=== PATIENT | female | born 1975 | race Caucasian/White ===

== ENCOUNTER 2018-11-16 11:55 | Emergency (ER) | payer MEDICAID, SELFPAY ==
[2018-11-16 12:45] VITALS: BP 128/69; PULSE 90; RESP 18; TEMP 36.9; O2SAT 99
--- NOTE | 2018-11-16 13:17 | DI.RAD_ITS ---
SYMPTOM/DIAGNOSIS: SHOULDER PAIN RIGHT SHOULDER: There is spurring at the tip of the acromion. There is a calcification seen adjacent to the humeral head which could indicate calcific tendinitis. There is no significant glenohumeral degenerative changes. IMPRESSION: Calcific tendinitis.
[2018-11-16] MEDS: Ibuprofen 600 MG TAB PO (13:22)
[2018-11-16] MEDS: Acetaminophen 325 MG TAB 650 MG PO (13:22)
--- NOTE | 2018-11-16 14:19 | W.ED.GENAD ---
Discharge Plan Disposition Patient Disposition: HOME Discharge Details Chief Complaint: Orthopedic Primary Care Provider: Unknown,Unknown ED Provider: Fran Cornelius Home Meds and New Rx's Prescriptions: No Action paroxetine HCl [Paxil] 20 mg Tablet 20 mg PO DAILY RF: 0 metoprolol tartrate 25 mg Tablet 25 mg PO BID RF: 0 ibuprofen [Ibuprofen IB] 200 mg Tablet 400 mg PO PRN PRNRF: 0 Discharge Data Discharge Date/Time-TO BE ENTERED AT DEPARTURE: 11/16/18 14:29 Medical Decision Making Severe right shoulder pain times 1 week. No initial trauma but sleeps with head and overhead. Woke up with right shoulder pain. Patient then 4 days ago slipped and fell trying to catch herself which may have aggravated made pain worse. Patient has used some ibuprofen alternating with Tylenol at minimal doses and has had minimal relief. Patient has significant reduction of range of motion, overhead extension, and pain to anterior shoulder. Concern for shoulder sprain versus bursitis but plan to do radiological imaging shoulder to rule out any acute findings Review of radiological imaging shows no acute findings. Patient was discharged with recommendation to continue to use [id number] medication, rest ice shoulder, and follow-up with orthopedist as needed. After discussion of diagnosis and plan of care patient has no further needs, questions, or concerns and states clear understanding to return to the emergency department for any worsening symptoms. HPI General Mode of arrival: ambulatory. Date/Time Provider Initiated Documentation: 11/16/18 12:24. Limitations to Documentation: no limitations. Information obtained by: patient and RN notes reviewed. History of Present Illness described as moderate, with intensity rated at 6. Quality is described as aching and sharp, and is localized to the right and upper extremity. Patient started experiencing this week(s) (1) and it has been constant. Rest improves symptom(s), Movement worsens symptoms . Patient notes no other symptoms.. Patient did receive the following treatments prior to arrival, none Related Data Home Medications Medication Instructions Recorded Confirmed ibuprofen [Ibuprofen IB] 400 mg PO PRN PRN 11/16/18 11/16/18 metoprolol tartrate 25 mg PO BID 11/16/18 11/16/18 paroxetine HCl [Paxil] 20 mg PO DAILY 11/16/18 11/16/18 Allergies Allergy/AdvReac Type Severity Reaction Status Date / Time cephalexin [From [facility]] Allergy Unverified 11/16/18 12:52 codeine Allergy Unverified 11/16/18 12:53 General Stated Complaint: Orthopedic DARREN: 4 Review of Systems Cardiovascular Denies chest pain and Denies dyspnea Respiratory Denies cough and Denies dyspnea Musculoskeletal Reports as per HPI, Denies numbness and Reports tingling Integumentary/Breasts Denies rash, Denies sores and Denies wounds Neurologic Denies numbness and Reports tingling [facility] Social History Smoking and Tabacco status: Current every day Exam Const General: cooperative and no acute distress Orientation: alert, awake and oriented x3 Resp Effort & Inspection: normal respiratory effort and able to speak in complete sentences Cardio Rate: regular rate Rhythm: regular rhythm Extrem Right upper extremity: normal capillary refill, shoulder/upper arm Details: tenderness Location: over the subacromial bursa and over the deltoid bursa, axillary nerve sensory function normal and abnormal ROM Details: pain with active ROM; no deformity, elbow/forearm Details: normal to inspection and abnormal ROM; no tenderness, wrist Details: normal to inspection and normal ROM; no tenderness and hand Details: normal to inspection, normal capillary refill, neuromotor exam normal, neurosensory exam normal, tendon exam normal, vascular exam Details: radial pulse present and normal ROM of fingers Course Vital Signs Temperature 36.9 C 11/16/18 12:45 Pulse 90 11/16/18 12:45 Respiratory Rate 18 11/16/18 12:45 Blood Pressure 128/69 11/16/18 12:45 Pulse Oximetry 99 11/16/18 12:45 Temperature 36.9 C 11/16/18 12:45 Temperature Source Temporal Artery Scan 11/16/18 12:45 Pulse 90 11/16/18 12:45 Respiratory Rate 18 11/16/18 12:45 Respiratory Effort 11/16/18 12:56 Blood Pressure 128/69 11/16/18 12:45 Blood Pressure Position Sitting 11/16/18 12:45 Pulse Oximetry 99 11/16/18 12:45 Oxygen Delivery Method Room Air 11/16/18 12:45 Oxygen Flow Rate 0 11/16/18 12:45 Pain Level 8 11/16/18 13:10
--- NOTE | 2018-11-16 14:22 | ED.GENADUL_ITS ---
Discharge Plan Disposition Patient Disposition: HOME Discharge Details Chief Complaint: Orthopedic Primary Care Provider: Unknown,Unknown ED Provider: Fran Cornelius Home Meds and New Rx's Prescriptions: No Action paroxetine HCl [Paxil] 20 mg Tablet 20 mg PO DAILY RF: 0 metoprolol tartrate 25 mg Tablet 25 mg PO BID RF: 0 ibuprofen [Ibuprofen IB] 200 mg Tablet 400 mg PO PRN PRNRF: 0 Discharge Data Discharge Date/Time-TO BE ENTERED AT DEPARTURE: 11/16/18 14:29 Medical Decision Making Severe right shoulder pain times 1 week. No initial trauma but sleeps with head and overhead. Woke up with right shoulder pain. Patient then 4 days ago slipped and fell trying to catch herself which may have aggravated made pain worse. Patient has used some ibuprofen alternating with Tylenol at minimal doses and has had minimal relief. Patient has significant reduction of range of motion, overhead extension, and pain to anterior shoulder. Concern for shoulder sprain versus bursitis but plan to do radiological imaging shoulder to rule out any acute findings Review of radiological imaging shows no acute findings. Patient was discharged with recommendation to continue to use [id number] medication, rest ice shoulder, and follow-up with orthopedist as needed. After discussion of di agnosis and plan of care patient has no further needs, questions, or concerns and states clear understanding to return to the emergency department for any worsening symptoms. HPI General Mode of arrival: ambulatory . Date/Time Provider Initiated Documentation: 11/16/18 12:24 . Limitations to Documentation: no limitations . Information obtained by: patient and RN notes reviewed . History of Present Illness described as moderate, with intensity rated at 6. Quality is described as aching and sharp, and is localized to the right and upper extremity. Patient started experiencing this week(s) (1) and it has been constant. Rest improves symptom(s), Movement worsens symptoms . Patient notes no other symptoms.. Patient did receive the following treatments prior to arrival, none Related Data Home Medications Medication Instructions Recorded Confirmed ibuprofen [Ibuprofen IB] 400 mg PO PRN PRN 11/16/18 11/16/18 metoprolol tartrate 25 mg PO BID 11/16/18 11/16/18 paroxetine HCl [Paxil] 20 mg PO DAILY 11/16/18 11/16/18 Allergies Allergy/AdvReac Type Severity Reaction Status Date / Time cephalexin [From [facility]] Allergy Unverified 11/16/18 12:52 codeine Allergy Unverified 11/16/18 12:53 General Stated Complaint: Orthopedic DARREN: 4 Review of Systems Cardiovascular Denies chest pain and Denies dyspnea Respiratory Denies cough and Denies dyspnea Musculoskeletal Reports as per HPI, Denies numbness and Reports tingling Integumentary/Breasts Denies rash, Denies sores and Denies wounds Neurologic Denies numbness and Reports tingling [facility] Social History Smoking and Tabacco status: Current every day Exam Const General: cooperative and no acute distress Orientation: alert, awake and oriented x3 Resp Effort & Inspection: normal respiratory effort and able to speak in complete sentences Cardio Rate: regular rate Rhythm: regular rhythm Extrem Right upper extremity: normal capillary refill, shoulder/upper arm Details: tenderness Location: over the subacromial bursa and over the deltoid bursa, axillary nerve sensory function normal and abnormal ROM Details: pain with active ROM; no deformity, elbow/forearm Details: normal to inspection and abnormal ROM; no tenderness, wrist Details: normal to inspection and normal ROM; no tenderness and hand Details: normal to inspection, normal capillary refill, neuromotor exam normal, neurosensory exam normal, tendon exam normal, vascular exam Details: radial pulse present and normal ROM of fingers Course Vital Signs Temperature 36.9 C 11/16/18 12:45 Pulse 90 11/16/18 12:45 Respiratory Rate 18 11/16/18 12:45 Blood Pressure 128/69 11/16/18 12:45 Pulse Oximetry 99 11/16/18 12:45 Temperature 36.9 C 11/16/18 12:45 Temperature Source Temporal Artery Scan 11/16/18 12:45 Pulse 90 11/16/18 12:45 Respiratory Rate 18 11/16/18 12:45 Respiratory Effort 11/16/18 12:56 Blood Pressure 128/69 11/16/18 12:45 Blood Pressure Position Sitting 11/16/18 12:45 Pulse Oximetry 99 11/16/18 12:45 Oxygen Delivery Method Room Air 11/16/18 12:45 Oxygen Flow Rate 0 11/16/18 12:45 Pain Level 8 11/16/18 13:10
== END 2018-11-16 14:29 | disposition home or self-care (01) ==
PROVIDERS: Emergency Provider Nurse Practitioner Family
DX: M25.511 Pain in right shoulder (principal)
CPT/HCPCS: 99283; 73030; 99282

== ENCOUNTER 2019-01-10 17:13 | Emergency (ER) | payer MEDICAID, SELFPAY ==
[2019-01-10] VITALS (16 sets, daily range): BP systolic 122–155; BP diastolic 75–101; PULSE 81–129; RESP 9–31; TEMP 36.8–37; O2SAT 94–99
[2019-01-10] MEDS: Normal Saline Flush 10 ML SYR IVP (17:45)
[2019-01-10] MEDS: Normal Saline 1,000 ML 1000 ML IV ×3 (17:45→20:17)
--- NOTE | 2019-01-10 17:56 | DI.RAD_ITS ---
SYMPTOM/DIAGNOSIS: TACHYCARDIA, PALPITATIONS, HYPERTENSION PA AND LATERAL CHEST: The heart is normal in size. The lungs are clear. The mediastinal structures and pleura appear intact. CONCLUSION: Normal chest.
--- NOTE | 2019-01-10 17:59 | W.ED.GENAD ---
Discharge Plan Disposition Patient Disposition: HOME Condition: Improving Discharge Details Chief Complaint: GenMedical Clinical Impression: UTI (urinary tract infection), Hypokalemia, Hypertension, Dehydration Primary Care Provider: Unknown,Unknown ED Provider: Dalia Pastrana Home Meds and New Rx's Prescriptions: New ciprofloxacin HCl 250 mg tablet 250 mg PO BID 3 Days Qty: 6 RF: 0 Continued paroxetine HCl [Paxil] 20 mg Tablet 20 mg PO DAILY RF: 0 metoprolol tartrate 25 mg Tablet 25 mg PO BID RF: 0 ibuprofen [Ibuprofen IB] 200 mg Tablet 400 mg PO PRN PRNRF: 0 Discharge Instructions Instructions: Dehydration (ED), Urinary Tract Infection in Women (ED), Hypokalemia (ED), Hypertension (ED) Additional Instructions: Take the antibiotics until finished. Drink plenty of fluids and get plenty of rest. Try to supplement potassium in your diet with bananas, spinach, tomato juice, etc. Call your primary care doctor tomorrow to schedule a follow-up appointment for reevaluation and to discuss continued treatment of your blood pressure. Return immediately to the emergency department with any worsening or new concerning symptoms. Discharge Data Discharge Physician: Dalia aPstrana Medical Decision Making 43-year-old female with a history of hypertension, borderline diabetes who presents with hypertension at home today, and feelings of anxiety with intermittent shaking, palpitations and dizziness for the past week. BP at home today 170/120. She denies headache, chest pain, shortness of breath, vomiting, abdominal pain or urinary symptoms. BP 155/101 on arrival. Heart rate 120s. EKG noted a rate of 116 and sinus tachycardia but no acute ST findings. Normal ENT exam. Patient appears mildly dehydrated. Lungs clear to auscultation. Abdomen soft nontender. No lower extremity edema. No focal deficits. Discussed with patient that her symptoms could possibly due to dehydration, or anxiety or a combination of both. Discussed that hypertension can be due to diet, pain, or can be benign essential hypertension that may require adjusting her blood pressure medications. As she has no headache, or focal deficits, I do not see an indication for CT head. Will place an IV, bolus IV fluids, labs including TSH and d-dimer, urinalysis, and chest x-ray. Will also give a dose of Ativan and reassess. 1900 --labs and imaging reviewed. White blood cell count 13. Potassium 2.9. Magnesium 1.7. Troponin negative. D-dimer negative. TSH normal. Urinalysis notes UTI.. Will give a dose of p.o. and IV potassium. Patient states she feels much better. Her heart rate is 80s. Her blood pressure is 135/78. Will give a dose of antibiotics for the UTI and send home with a prescription. Discussed with patient that she should call her primary care doctor tomorrow to schedule a follow-up appointment for reevaluation and to discuss continued management of her blood pressure. Also instructed to discuss with him any concerns for anxiety and whether she could benefit from antianxiety medication. Discussed with patient that her symptoms of palpitations and tachycardia could certainly be due to dehydration and her infection with UTI. She is instructed to drink plenty of fluids, get plenty of rest, finish antibiotics completely and to return immediately to the emergency department any worsening or new concerning symptoms. Medical Records Medical records reviewed: Yes I reviewed the patient's medical records. Imaging Data Radiologic Study: Radiologist's impression: XR Chest, 2 Views EXAM DATE/TIME: 01/10/2019 5:58 PM FINDINGS: Lungs: No consolidation. Pleural space: No pleural effusion. No pneumothorax. Heart/Mediastinum: No cardiomegaly. Bones/joints: No acute fracture. IMPRESSION: No acute cardiopulmonary pathology. Lab Data Lab results reviewed: Yes I reviewed the patient's lab results. 01/10/19 18:17 Urine - Reflex from Ua Urine Culture - Pending Laboratory Tests Range/Units 01/10/19 01/10/19 01/10/19 17:45 17:45 17:45 WBC (4.4-10.8) k/cumm 13.43 H RBC (4.00-5.20) m/cumm 4.67 Hgb (12.0-15.5) g/dL 14.2 Hct (36.0-46.0) % 43.2 MCV (80-95) fL 92.5 MCH (27.0-33.0) pg 30.4 MCHC (32.0-36.0) g/dL 32.9 RDW (11.7-14.6) % 12.7 Plt Count (130-400) x1000/uL 324 MPV (8.0-11.0) fL 11.2 H Immature Gran % 0.1 Neutrophils % 71.2 Lymphocytes % 20.3 Monocytes % 7.7 Eosinophils % 0.5 Basophils % 0.2 Absolute Neutrophils (1.2-6.7) k/cumm 9.56 H Absolute Lymphocytes (1.2-3.4) k/cumm 2.73 Absolute Monocytes (0.11-0.7) k/cumm 1.03 H Absolute Eosinophils (0.0-0.7) k/cumm 0.07 Absolute Basophils (0.0-0.2) k/cumm 0.03 D-Dimer (<500) ng/mlFEU 351 Sodium (136-145) mmol/L 141 Potassium (3.5-5.1) mmol/L 2.9 L* Chloride (98-107) mmol/L 104 Carbon Dioxide (21.0-32.0) mmol/L 24.3 Anion Gap (3-11) mmol/L 12.7 H BUN (7-18) mg/dL 11 Creatinine (0.55-1.02) mg/dL 0.78 Estimated GFR/1.73 m2 (mL/min/1.73m2) >= 60.00 Glucose (70-100) mg/dL 143 H Calcium (8.5-10.1) mg/dL 8.8 Magnesium (1.8-2.4) mg/dL 1.7 L Total Bilirubin (0.2-1.0) mg/dL 0.5 AST (15-37) U/L 12 L ALT (12-78) U/L 21 Alkaline Phosphatase (46-116) U/L 56 Troponin I (0.00-0.06) ng/mL < 0.02 Total Protein (6.4-8.2) g/dL 7.7 Albumin (3.4-5.0) g/dL 3.7 TSH (0.358-3.74) uIU/mL 1.60 Urine Color (Yellow) Urine Clarity Urine pH (5-8) Ur Specific [place] (1.005-1.025) Urine Protein (Negative) mg/dL Urine Ketones (Negative) mg/dL Urine Blood (Negative) Urine Nitrite (Negative) Urine Bilirubin (Negative) Urine Urobilinogen (Up TO 0.2) EU/dL Ur Leukocyte Esterase (Negative) Urine RBC (0-2) Urine WBC (0-5) HPF Ur Epithelial Cells (Negative) HPF Urine Crystals (Negative) HPF Urine Bacteria (Negative) HPF Urine Casts (Negative) LPF Urine Mucus (Negative) Ur Culture Indicated? Urine Glucose (Negative) mg/dL Range/Units 01/10/19 18:17 WBC (4.4-10.8) k/cumm RBC (4.00-5.20) m/cumm Hgb (12.0-15.5) g/dL Hct (36.0-46.0) % MCV (80-95) fL MCH (27.0-33.0) pg MCHC (32.0-36.0) g/dL RDW (11.7-14.6) % Plt Count (130-400) x1000/uL MPV (8.0-11.0) fL Immature Gran % Neutrophils % Lymphocytes % Monocytes % Eosinophils % Basophils % Absolute Neutrophils (1.2-6.7) k/cumm Absolute Lymphocytes (1.2-3.4) k/cumm Absolute Monocytes (0.11-0.7) k/cumm Absolute Eosinophils (0.0-0.7) k/cumm Absolute Basophils (0.0-0.2) k/cumm D-Dimer (<500) ng/mlFEU Sodium (136-145) mmol/L Potassium (3.5-5.1) mmol/L Chloride (98-107) mmol/L Carbon Dioxide (21.0-32.0) mmol/L Anion Gap (3-11) mmol/L BUN (7-18) mg/dL Creatinine (0.55-1.02) mg/dL Estimated GFR/1.73 m2 (mL/min/1.73m2) Glucose (70-100) mg/dL Calcium (8.5-10.1) mg/dL Magnesium (1.8-2.4) mg/dL Total Bilirubin (0.2-1.0) mg/dL AST (15-37) U/L ALT (12-78) U/L Alkaline Phosphatase (46-116) U/L Troponin I (0.00-0.06) ng/mL Total Protein (6.4-8.2) g/dL Albumin (3.4-5.0) g/dL TSH (0.358-3.74) uIU/mL Urine Color (Yellow) Yellow Urine Clarity Sl cloudy Urine pH (5-8) 5.5 Ur Specific [place] (1.005-1.025) 1.025 Urine Protein (Negative) mg/dL Trace H Urine Ketones (Negative) mg/dL 80 H Urine Blood (Negative) Small H Urine Nitrite (Negative) Positive H Urine Bilirubin (Negative) Negative Urine Urobilinogen (Up TO 0.2) EU/dL 0.2 Ur Leukocyte Esterase (Negative) Moderate H Urine RBC (0-2) 5-10 H Urine WBC (0-5) HPF >50 Ur Epithelial Cells (Negative) HPF Negative Urine Crystals (Negative) HPF Negative Urine Bacteria (Negative) HPF Many Urine Casts (Negative) LPF Negative Urine Mucus (Negative) Negative Ur Culture Indicated? Yes Urine Glucose (Negative) mg/dL Negative ECG Data Attestation: I personally reviewed and interpreted this ECG (s) as follows: Interpretation: Rate of 116, sinus tachycardia, no acute ST elevation or depression. QTc 464. QRS 94. HPI General Mode of arrival: ambulatory. Date/Time Provider Initiated Documentation: 01/10/19 17:20. Limitations to Documentation: no limitations. Information obtained by: patient. HPI Narrative: Patient is a 43-year-old female with a history of hypertension and borderline diabetes who presents with concern for high blood pressure and palpitations for the past week. She states her blood pressure is usually 120s over 70s and today at home it was 170/120. She states she is felt like she was having an anxiety attack all week with intermittent palpitations, and feeling shaky and occasional dizziness. She states she has been drinking plenty of fluids but has been eating less for the past week due to the symptoms. She states she does not have a history of anxiety but she thinks this is what her symptoms were from. She states her recently left for a trip to [place] and she thought her symptoms were due to separation anxiety. She admits to intermittent diarrhea in which she has had 1 loose stool daily for the past few days. She denies fever, chest pain, shortness of breath, headache, vomiting, urinary symptoms, abdominal pain. She states she has been on metoprolol for the past 15 years for tachycardia and hypertension. She states she saw her PCP 2 weeks ago for an evaluation and was told that her blood pressure was 130s over 80s and higher than usual and that he would recheck it on another visit and consider increasing her dose of metoprolol. Related Data Home Medications Medication Instructions Recorded Confirmed ibuprofen [Ibuprofen IB] 400 mg PO PRN PRN 11/16/18 01/10/19 metoprolol tartrate 25 mg PO BID 11/16/18 01/10/19 paroxetine HCl [Paxil] 20 mg PO DAILY 11/16/18 01/10/19 ciprofloxacin HCl 250 mg PO BID 3 Days #6 tab 01/10/19 Previous Rx's Medication Instructions Recorded ciprofloxacin HCl 250 mg PO BID 3 Days #6 tab 01/10/19 Allergies Allergy/AdvReac Type Severity Reaction Status Date / Time cephalexin [From [facility]] Allergy Unverified 01/10/19 17:22 codeine Allergy Unverified 01/10/19 17:22 General Stated Complaint: GenMedical DARREN: 3 Review of Systems Review of Systems All systems reviewed & are unremarkable except as noted in HPI and below Constitutional Reports as per HPI, Denies chills and Denies fever(s) Eyes Denies blurry vision ENT Denies dizziness, Denies sore throat and Denies throat swelling Cardiovascular Denies chest pain, Reports palpitations and Denies dyspnea Respiratory Denies cough and Denies dyspnea Gastrointestinal Denies abdominal pain, Reports diarrhea and Denies vomiting Genitourinary Denies hematuria and Denies dysuria Musculoskeletal Denies back pain and Denies numbness Integumentary/Breasts Denies lesions and Denies rash Neurologic Denies dizziness, Denies focal weakness and Denies numbness Endocrine Reports palpitations Allergic/Immunologic Denies throat swelling COUNTS INCLUDE 234 BEDS AT THE [facility] Medical History Borderline diabetes (Acute) Tachycardia (Acute) HTN (hypertension) (Chronic) Surgical History History of bilateral tubal ligation (Acute) History of carpal tunnel release (Acute) History of knee surgery (Acute) H/O laparoscopy (Chronic) History of hysterectomy (Chronic) Social History Smoking/Tobacco Use Status: Current every day Alcohol Intake: never Drug use: Never Do you feel safe at home: Yes Do you feel safe in your relationship?: Yes Exam Const General: cooperative and healthy appearing Orientation: alert and awake HENMT Head: normal to inspection Ears: hearing grossly normal bilaterally, external ears normal and TM's normal bilaterally General nose exam: external nose normal Face and sinus: normal facial exam Mouth: oral mucosae normal Teeth and gingiva: dentition normal Throat: posterior oropharynx normal Eyes General: appearance normal, both eyes and all related structures Eyelids: eyelids normal Pupils: PERRL EOM: EOM intact bilaterally Neck Neck: normal visual inspection Lymphatic: no lymphadenopathy noted Chest Chest: normal inspection of the chest Resp Effort & Inspection: normal respiratory effort and able to speak in complete sentences Auscultation: clear to auscultation bilaterally Cardio Rate: regular rate Rhythm: regular rhythm GI Inspection: normal to inspection Palpation: soft, not firm, no guarding, no hepatosplenomegaly, no masses and nontender Auscultation: normal bowel sounds Skin General skin exam: no rashes or lesions noted Neuro General: alert, awake, oriented x3, gait normal, moves all extremities, no meningeal signs and no focal motor deficits Cranial Nerves: CN's II-XI intact bilaterally Cognition: normal cognition Speech: speech normal Gait: normal gait Motor: muscle tone normal throughout and strength 5/5 throughout Sensory Exam: no sensory deficits noted Extrem General: normal to inspection, full ROM and no edema Psych Appearance: grossly normal Mental Status: mental status grossly normal Speech and Movement: speech and movement normal Affect: normal affect Thought Process: normal Course Vital Signs Temperature 98.6 F 01/10/19 17:19 Pulse 129 H 01/10/19 17:19 Respiratory Rate 16 01/10/19 17:19 Blood Pressure 155/101 H 01/10/19 17:19 Pulse Oximetry 98 01/10/19 17:19 Temperature 98.6 F 01/10/19 17:19 Temperature Source Temporal Artery Scan 01/10/19 17:19 Pulse 129 H 01/10/19 17:19 Respiratory Rate 16 01/10/19 17:19 Respiratory Effort 01/10/19 17:54 Blood Pressure 155/101 H 01/10/19 17:19 Blood Pressure Position Sitting 01/10/19 17:19 Pulse Oximetry 98 01/10/19 17:19 Oxygen Delivery Method Room Air 01/10/19 17:19 Oxygen Flow Rate 0 01/10/19 17:19 Pain Level 0 01/10/19 17:19
[2019-01-10] MEDS: LORazepam 0.5 MG TAB PO (18:22)
[2019-01-10 18:26] LABS: Bilirubin Negative (Negative); Blood Small (Negative); Clarity Sl Cloudy; Glucose Negative (Negative); Ketones 80 mg/dL (Negative); Leukocyte Esterase Moderate (Negative); Nitrite Positive (Negative); Specific Gravity 1.025 (1.005-1.025); Urobilinogen 0.2 EU/dL (Up TO 0.2); pH 5.5 (5-8)
[2019-01-10 18:26] LABS: Abs Immature Grans 0.02 k/cumm (0.0-0.09); Absolute Basophil Count 0.03 k/cumm (0.0-0.2); Absolute Eosinophil Count 0.07 k/cumm (0.0-0.7); Absolute Monocyte Count 1.03 k/cumm (0.11-0.7); Absolute Neutrophil Count 9.56 k/cumm (1.2-6.7); Basophils % 0.2; Eosinophils % 0.5; HCT 43.2 % (36.0-46.0); HGB 14.2 g/dL (12.0-15.5); Immature Grans % 0.1; Lymphocytes % 20.3; Mean Corp. HGB Concentration 32.9 g/dL (32.0-36.0); Mean Corpuscular Hemoglobin 30.4 pg (27.0-33.0); Mean Corpuscular Volume 92.5 fL (80-95); Mean Platelet Volume 11.2 fL (8.0-11.0); Monocytes % 7.7; Neutrophils % 71.2; Platelet Count 324 x1000/uL (130-400); RBC 4.67 m/cumm (4.00-5.20); RBC Distribution Width 12.7 % (11.7-14.6); White Blood Cell Count 13.43 k/cumm (4.4-10.8)
[2019-01-10 18:36] LABS: Absolute Lymphocyte Count 2.73 k/cumm (1.2-3.4)
[2019-01-10 18:40] LABS: Bacteria Many HPF (Negative); C & S Indicated? Yes; Casts Negative LPF (Negative); Crystals Negative HPF (Negative); Epithelial Cells Negative HPF (Negative); Mucus Negative (Negative); WBC >50 HPF (0-5)
[2019-01-10 18:51] LABS: ALT 21 U/L (12-78); AST 12 U/L (15-37); Albumin 3.7 g/dL (3.4-5.0); Alkaline Phosphatase 56 U/L (46-116); Anion Gap 12.7 mmol/L (3-11); BUN 11 mg/dL (7-18); Bilirubin, Total 0.5 mg/dL (0.2-1.0); CO2 24.3 mmol/L (21.0-32.0); CREATININE 0.78 mg/dL (0.55-1.02); Calcium 8.8 mg/dL (8.5-10.1); Chloride 104 mmol/L (98-107); Glucose 143 mg/dL (70-100); Magnesium 1.7 mg/dL (1.8-2.4); Sodium 141 mmol/L (136-145); Total Protein 7.7 g/dL (6.4-8.2)
[2019-01-10 18:54] LABS: Potassium 2.9 mmol/L (3.5-5.1); Troponin I < 0.02 ng/mL (0.00-0.06)
[2019-01-10 18:59] LABS: D-Dimer 351 ng/mlFEU (<500)
--- NOTE | 2019-01-10 19:12 | DI.VRAD_ITS ---
EXAM: XR Chest, 2 Views EXAM DATE/TIME: 01/10/2019 5:58 PM CLINICAL HISTORY: 43 years old, female; Signs and symptoms; Cough TECHNIQUE: Imaging protocol: XR of the chest, 2 views. COMPARISON: No relevant prior studies available. FINDINGS: Lungs: No consolidation. Pleural space: No pleural effusion. No pneumothorax. Heart/Mediastinum: No cardiomegaly. Bones/joints: No acute fracture. IMPRESSION: No acute cardiopulmonary pathology. Dictated and Authenticated by: Bell Dean MD. Ordering:SERVANDO Gómez MD
[2019-01-10] MEDS: Potassium Chloride 20 MEQ TABCR 40 MEQ PO (19:26)
[2019-01-10] MEDS: POTASSIUM CHLORIDE 10 MEQ/100 ML BAG 100 MEQ IVPB (19:26)
[2019-01-10] MEDS: Ciprofloxacin 250 MG TAB PO (20:16)
== END 2019-01-10 19:54 | disposition home or self-care (01) ==
PROVIDERS: Emergency Provider Physician Assistant
DX: N39.0 Urinary tract infection, site not specified (principal); E87.6 Hypokalemia; E86.0 Dehydration; B96.20 Unspecified Escherichia coli [E. coli] as the cause of diseases classified elsewhere; I10 Essential (primary) hypertension
CPT/HCPCS: 36415; 80053; 87077; 96361; 96365; 99284; 71046; 81003; 81015; 83735; 84443; 84484; 85025; 85379; 87086; 87186; J3480